=== PATIENT | female | born 1965 | race Caucasian/White ===

== ENCOUNTER 2023-01-30 10:50 | Emergency (ER) | payer BC, SELFPAY ==
[2023-01-30 10:59] VITALS: BP 167/101; PULSE 71; RESP 16; TEMP 36.7; O2SAT 99; BMI 24.4
[2023-01-30 11:27] LABS: Bilirubin Urine NEGATIVE (NEGATIVE); Blood Urine MODERATE (NEGATIVE); Clarity Urine CLEAR (CLEAR); Color Urine YELLOW (YELLOW); Glucose Urine UA NEGATIVE (NEGATIVE); Ketones Urine TRACE mg/dL (NEGATIVE); Leukocyte Esterase Urine LARGE (NEGATIVE); Nitrite Urine POSITIVE (NEGATIVE); Protein Urine 100 mg/dL (NEG/TRACE); Specific Gravity Urine 1.025 (1.005-1.025); pH Urine 5.5 (5.0-9.0)
[2023-01-30 12:26] LABS: WBC Urine 20-50 #/HPF (NONE SEEN)
[2023-01-30 12:27] LABS: Bacteria Urine TRACE #/HPF (NONE SEEN); Calcium Oxalate Crystals Urine RARE; Cast Seen? NONE SEEN #/LPF (NONE SEEN); Crystals Seen? Seen #/HPF (None Seen); Mucus Urine NONE SEEN (NONE SEEN); Squamous Epithelial Cell Urine FEW #/LPF (NONE/RARE); Urine Culture Indicated YES
--- NOTE | 2023-01-30 12:33 | ED_ITS ---
HPI - Female Genitourinary General Chief complaint: Urogenital-Female Stated complaint: UTI SYMPTOMS Time Seen by Provider: 01/30/23 10:55 Source: patient Mode of arrival: walk-in Limitations: no limitations History of Present Illness HPI Narrative: 57-year-old female presented to the emergency department for dysuria and frequency. She was diagnosed at an urgent care center about ten days ago. She was put on Bactrim but got a phone call that she had bacteria that was resistant to Bactrim. she was put on Macrobid by the urgent care center butt had adverse reaction to it so she stopped it. Her MATERIAL PROCESSOR phoned in a prescription for Pyridium but didn't change his antibiotic. She hasn't been on an antibiotic for several days. No fever or back pain or vomiting. Related Data Previous Rx's Medication Instructions Recorded ciprofloxacin HCl 250 mg tablet 250 mg PO BID #14 tabs 01/30/23 (Cipro) Allergies Allergy/AdvReac Type Severity Reaction Status Date / Time nitrofurantoin AdvReac Severe leg cramps Verified 01/30/23 11:05 [From Macrobid] Review of Systems ROS Narrative A ten point review of systems is negative except as noted above. Genitourinary Reports: painful urination and urinary frequency PFSH PFSH Social History Smoking status: Never smoker Exam Narrative Exam Narrative: Nurses note and vital signs reviewed and patient is not hypoxic. General: The patient appears well and in no apparent distress. Patient is resting comfortably on cart. Skin: Warm, dry, no pallor noted. There is no rash noted. Head: Normocephalic, atraumatic Eye: Normal conjunctiva, no drainage Ears, Nose, Mouth, and Throat: oral mucosa is moist. Nares patent. Cardiovascular: Regular Rate and Rhythm Respiratory: Patient is in no distress, no accessory muscle use, lungs are clear to auscultation, no wheezing, rales or rhonchi Back: non-tender, no CVA tenderness bilaterally to percussion. GI: soft and nontender Musculoskeletal: no joint swelling Neurological: A&O, normal speech Psychiatric: Cooperative Constitutional Vital Signs, click to edit/add: Last Vital Signs Temp 98.1 F 01/30/23 10:59 Pulse 71 01/30/23 10:59 Resp 16 01/30/23 10:59 BP 167/101 H 01/30/23 10:59 Pulse Ox 99 01/30/23 10:59 O2 Del Method Room Air 01/30/23 10:59 Course Vital Signs Vital signs: Vital Signs Temperature 98.1 F 01/30/23 10:59 Pulse Rate 71 01/30/23 10:59 Respiratory Rate 16 01/30/23 10:59 Blood Pressure 167/101 H 01/30/23 10:59 Pulse Oximetry 99 01/30/23 10:59 Oxygen Delivery Method Room Air 01/30/23 10:59 Temperature 98.1 F 01/30/23 10:59 Pulse Rate 71 01/30/23 10:59 Respiratory Rate 16 01/30/23 10:59 Blood Pressure 167/101 H 01/30/23 10:59 Pulse Oximetry 99 01/30/23 10:59 Oxygen Delivery Method Room Air 01/30/23 10:59 MDM - Female Genitourinary MDM Narrative Medical decision making narrative: urinalysis shows urinary tract infection. I obtained the culture results from the urgent care center and the organism was Escherichia coli sensitive to Cipro so should be prescribed Cipro. Treatment diagnosis and follow-up were discussed with the patient. Differential Diagnosis Differential diagnosis: Likely urinary tract infection and other (pyelonephritis) Lab Data Attestation: I reviewed the patient's lab results. Labs: Lab Results 01/30/23 Range/Units 11:01 Urine Color Yellow (YELLOW) Urine Clarity Clear (CLEAR) Urine pH 5.5 (5.0-9.0) Ur Specific [place] 1.025 (1.005-1.025) Urine Protein 100 A (NEG/TRACE) mg/dL Urine Glucose (UA) Negative (NEGATIVE) mg/dL Urine Ketones Trace A (NEGATIVE) mg/dL Urine Occult Blood Moderate A (NEGATIVE) Urine Nitrite Positive A (NEGATIVE) Urine Bilirubin Negative (NEGATIVE) Urine Urobilinogen 1.0 (0.2-1.0) EU/dL Ur Leukocyte Esterase Large A (NEGATIVE) Urine RBC 5-10 A (0-2) #/HPF Urine WBC 20-50 A (NONE SEEN) #/HPF Ur Squamous Epith Cells Few A (NONE/RARE) #/LPF Urine Crystals Seen A (None Seen) #/HPF Calcium Oxalate Crystal Rare Urine Bacteria Trace A (NONE SEEN) #/HPF Urine Casts None seen (NONE SEEN) #/LPF Urine Mucus None seen (NONE SEEN) Ur Culture Indicated? Yes Discharge Plan Discharge Chief Complaint: Urogenital-Female Clinical Impression: Urinary tract infection Patient Disposition: Home, Self-Care Time of Disposition Decision: 12:31 Condition: Good Mode of Transportation: Private Vehicle Prescriptions / Home Meds: New ciprofloxacin HCl [Cipro] 250 mg tablet 250 mg PO BID Qty: 14 0RF Instructions: Urinary Tract Infection in Women (ED) Stand Alone Forms: Portal Instructions Referrals: Physician,Non-Staff, MD [Primary Care Provider] - 1 week
== END 2023-01-30 12:39 | disposition home or self-care (01) ==
PROVIDERS: Emergency Provider Emergency Medicine
DX: N39.0 Urinary tract infection, site not specified (principal)
CPT/HCPCS: 81001; 87086; 87150; 87186; 99283

== ENCOUNTER 2023-01-31 15:33 | Emergency (ER) | payer BC, SELFPAY ==
[2023-01-31 15:38] VITALS: BP 128/92; PULSE 93; RESP 16; TEMP 37.4; O2SAT 99; BMI 24.7
--- NOTE | 2023-01-31 15:53 | ED_ITS ---
HPI - Abdominal Pain General Chief Complaint: Fever Stated Complaint: UTI, Possible allergic reaction, Nausea/Vomiting Time Seen by Provider: 01/31/23 15:41 Source: patient Mode of arrival: walk-in History of Present Illness HPI narrative: patient is a 57-year-old female who presents to the emergency department for reevaluation. She was seen in this emergency department yesterday for urinary tract infection, her urine specimen yesterday showed a urinary tract infection and she had been on multiple antibiotics from urgent care as the initial antibiotic she was prescribed several days ago was found to be resistant from the culture and the 2nd antibiotic she was switched to caused her to have muscle cramps which she believed was an ALLERGIC reaction. She was started on Cipro yesterday from this emergency department. She states last night she developed low-grade fevers and was generally not feeling well. She had some abdominal discomfort which is resolved at this time. She has had no dysuria or hematuria. She states she is not sure if the fevers and not feeling well were from the new antibiotic she was started on yesterday. She has had no swelling, hives or difficulty breathing. Related Data Previous Rx's Medication Instructions Recorded ciprofloxacin HCl 250 mg tablet 250 mg PO BID #14 tabs 01/30/23 (Cipro) ondansetron 4 mg disintegrating 4 mg PO Q6H PRN nausea and 01/31/23 tablet vomiting #12 tabs Allergies Allergy/AdvReac Type Severity Reaction Status Date / Time nitrofurantoin AdvReac Severe leg cramps Verified 01/30/23 11:05 [From Macrobid] Review of Systems ROS Constitutional Reports: fever and chills Ears, nose, mouth, and throat Denies: throat pain Cardiovascular Denies: chest pain Respiratory Denies: shortness of breath or cough Gastrointestinal Reports: abdominal pain, nausea and vomiting; Denies: diarrhea Genitourinary Denies: painful urination or urinary frequency Musculoskeletal Reports: back pain Integumentary/Breast Denies: rash Endocrine Denies: excessive urination PFSH PFSH Social History Smoking status: Never smoker Exam Narrative Exam Narrative: Gen.: Awake, alert, in no distress Head: Normocephalic, atraumatic ENT: Moist mucous membranes Respiratory: No respiratory distress, lungs clear bilaterally Cardio: Regular rate and rhythm Gastrointestinal: Abdomen is soft, nondistended and nontender to palpation; no CVA tenderness Extremities: Moves extremities equally Psych: Normal mood and affect Neuro: No focal neuro deficit Skin: Warm, dry, intact Constitutional Vital Signs, click to edit/add: Last Vital Signs Temp 99.4 F 01/31/23 15:38 Pulse 93 H 01/31/23 15:38 Resp 16 01/31/23 15:38 BP 128/92 H 01/31/23 15:38 Pulse Ox 99 01/31/23 15:38 O2 Del Method Room Air 01/31/23 16:01 Course Vital Signs Vital signs: Vital Signs Temperature 99.4 F 01/31/23 15:38 Pulse Rate 93 H 01/31/23 15:38 Respiratory Rate 16 01/31/23 15:38 Blood Pressure 128/92 H 01/31/23 15:38 Pulse Oximetry 99 01/31/23 15:38 Oxygen Delivery Method Room Air 01/31/23 15:38 Temperature 99.4 F 01/31/23 15:38 Pulse Rate 93 H 01/31/23 15:38 Respiratory Rate 16 01/31/23 15:38 Blood Pressure 128/92 H 01/31/23 15:38 Pulse Oximetry 99 01/31/23 15:38 Oxygen Delivery Method Room Air 01/31/23 16:01 MDM - Abdominal Pain MDM Narrative Medical decision making narrative: patient was treated with IV fluids, Zofran, Toradol. Vital signs are within normal limits, abdomen is soft and benign with no CVA tenderness in the Emergency Room. Patient with minimal leukocytosis with white blood cell count of 13.7. She has no bandemia, normal lactic acid. Her creatinine is normal. She was reexamined by attending physician prior to discharge, she was given education and reassurance that her symptoms are likely the result of the urinary tract infection that she was diagnosed with yesterday. She should continue her antibiotics and will be given Zofran as needed for nausea and vomiting. Continue Motrin and Tylenol, increase fluids and return to the Emergency Room if symptoms change or worsen. Medical Records Attestation: I reviewed the patient's medical records. Lab Data Attestation: I reviewed the patient's lab results. Labs: Lab Results 01/31/23 Range/Units 15:50 WBC 13.7 H (4.0-11.0) 10^3/uL RBC 4.21 (4.20-5.40) 10^6/uL Hgb 12.4 (12.0-16.0) g/dL Hct 36.5 (36.0-48.0) % MCV 86.7 (81.0-99.0) fL MCH 29.5 (26.7-34.0) pg MCHC 34.0 (29.9-35.2) g/dL RDW 12.3 (11.0-15.0) % Plt Count 238 (150-450) 10^3/uL MPV 9.3 L (9.5-13.5) fL Neut % (Auto) 80.9 H (43.0-75.0) % Lymph % (Auto) 9.3 L (20.5-60.0) % Gooding % (Auto) 9.0 (1.7-12.0) % Eos % (Auto) 0.1 L (0.9-7.0) % Baso % (Auto) 0.3 (0.2-2.0) % Neut # (Auto) 11.1 H (1.4-6.5) 10^3/uL Lymph # (Auto) 1.3 (1.2-3.8) 10^3/uL Gooding # (Auto) 1.2 H (0.3-0.8) 10^3/uL Eos # (Auto) 0.0 (0.0-0.7) 10^3/uL Baso # (Auto) 0.0 (0.0-0.1) 10^3/uL Abs Immat Gran (auto) 0.05 H (0.00-0.03) 10^3/uL Imm/Tot Granulo (auto) 0.4 (0.0-0.5) % Sodium 135 L (136-145) mmol/L Potassium 4.1 (3.5-5.1) mmol/L Chloride 101 (98-107) mmol/L Carbon Dioxide 24.4 (21.0-32.0) mmol/L Anion Gap 13.7 BUN 9.0 (7.0-18.0) mg/dL Creatinine 0.77 (0.55-1.02) mg/dL Est GFR ( Amer) >60 (>=60) Est GFR (Non-Af Amer) >60 (>=60) BUN/Creatinine Ratio 11.7 Glucose 120 H (74-106) mg/dL Lactate 0.6 (0.4-2.0) mmol/L Calcium 10.2 H (8.5-10.1) mg/dL Total Bilirubin 1.0 (0.2-1.0) mg/dL AST 20 (15-37) U/L ALT 33 (14-59) U/L Alkaline Phosphatase 150 H (46-116) U/L Total Protein 7.4 (6.4-8.2) g/dL Albumin 3.4 (3.4-5.0) g/dL Globulin 4.0 g/dL Albumin/Globulin Ratio 0.9 Discharge Plan Discharge Chief Complaint: Fever Clinical Impression: Urinary tract infection Patient Disposition: Home, Self-Care Time of Disposition Decision: 16:45 Condition: Good Prescriptions / Home Meds: New ondansetron 4 mg tablet,disintegrating 4 mg PO Q6H PRN (Reason: nausea and vomiting) Qty: 12 0RF No Action ciprofloxacin HCl [Cipro] 250 mg tablet 250 mg PO BID Qty: 14 0RF Instructions: Urinary Tract Infection in Women (ED) Stand Alone Forms: Portal Instructions Referrals: Physician,Non-Staff, MD [Primary Care Provider] - 1 week
[2023-01-31] MEDS: ONDANSETRON PF 4 MG/2 ML VIAL IV (16:08)
[2023-01-31] MEDS: KETOROLAC TROMETHAMINE 30 MG/ML VIAL IVP (16:08)
[2023-01-31] MEDS: 0.9 % SODIUM CHLORIDE 1,000 ML 1000 ML IV (16:08)
[2023-01-31 16:11] LABS: Basophils Percent Auto 0.3 % (0.2-2.0); Eosinophils Percent Auto 0.1 % (0.9-7.0); Hematocrit 36.5 % (36.0-48.0); Hemoglobin 12.4 g/dL (12.0-16.0); Immature Granulocytes Abs Auto 0.05 10^3/uL (0.00-0.03); Immature Granulocytes Pct Auto 0.4 % (0.0-0.5); Lymphocytes Absolute Auto 1.3 10^3/uL (1.2-3.8); Lymphocytes Percent Auto 9.3 % (20.5-60.0); Mean Corpuscular Hemoglobin 29.5 pg (26.7-34.0); Mean Corpuscular Volume 86.7 fL (81.0-99.0); Mean Platelet Volume 9.3 fL (9.5-13.5); Monocytes Absolute Auto 1.2 10^3/uL (0.3-0.8); Neutrophils Absolute Auto 11.1 10^3/uL (1.4-6.5); Neutrophils Percent Auto 80.9 % (43.0-75.0); Platelet Count 238 10^3/uL (150-450); Red Blood Count 4.21 10^6/uL (4.20-5.40); Red Cell Distribution Width 12.3 % (11.0-15.0); White Blood Count 13.7 10^3/uL (4.0-11.0)
[2023-01-31 16:30] LABS: Alanine Aminotransferase 33 U/L (14-59); Albumin Globulin Ratio 0.9; Albumin Level 3.4 g/dL (3.4-5.0); Alkaline Phosphatase 150 U/L (46-116); Anion Gap 13.7; Aspartate Amino Transferase 20 U/L (15-37); BUN Creatinine Ratio 11.7; Calcium 10.2 mg/dL (8.5-10.1); Carbon Dioxide 24.4 mmol/L (21.0-32.0); Chloride 101 mmol/L (98-107); Estimated GFR (African America >60 (>=60); Estimated GFR (Non-African Ame >60 (>=60); Glucose 120 mg/dL (74-106); Potassium 4.1 mmol/L (3.5-5.1); Sodium 135 mmol/L (136-145); Total Protein 7.4 g/dL (6.4-8.2)
[2023-01-31 16:32] LABS: Lactate/Lactic Acid 0.6 mmol/L (0.4-2.0)
== END 2023-01-31 17:24 | disposition home or self-care (01) ==
PROVIDERS: Physician Assistant; Emergency Provider Emergency Medicine
DX: N39.0 Urinary tract infection, site not specified (principal)
CPT/HCPCS: 36415; 80053; 83605; 85025; 96374; 96375; 99284

== ENCOUNTER 2025-03-20 07:57 | Emergency (ER) | payer BC, SELFPAY ==
[2025-03-20 08:01] VITALS: PULSE 74; TEMP 36.9; O2SAT 100; BMI 25.0
--- OUTSIDE RECORDS SUMMARY | 2025-03-20 08:05 | XMS_ITS | Clinical Summary ---
Author Organization [facility] Address [address] [place] [address] Care Team Providers Care Meat Smoker Name Role Phone Rudy Delgadillo DO Unavailable [phone] Channing Bhandari MD Primary Care Provider [phone] Allergies Active AllergyReactionsCriticalityNoted DateCommentsLoratadine-Pseudoephedrine FmYlhvbPinf25/06/2023 Burning with urination - dried out bladder NitrofurantoinGI qacppyztuucQuza94/06/2023 severe stomach pain/ diarrhea, pain in leg. Other Reaction(s): Numbness Medications MedicationSigDispense QuantityRefillsLast FilledStart DateEnd DateStatus calcium 200 MG tablet Active ascorbic acid (Vitamin C) 100 MG chewable tablet Active fluticasone (Flonase) 50 MCG/ACT nasal spray 3Active ammonium lactate (Lac-Hydrin) 12 % lotion Indications:Seborrheic keratosisApply to affected areas on body daily. 396 g [id number] phenazopyridine (Pyridium) 200 MG tablet Indications:Burning with urination,Pain with urinationTake 1 tablet every 8 hours as needed for 5 days for UTI symptoms 15 tablet 5Active B Complex Vitamins (VITAMIN-B COMPLEX PO) Take by mouth + CActive Active Problems ProblemNoted DateDiagnosed DateFemale climacteric state10/10/2022Fibrocystic breast qahhxlm6510/10/2022Neoplasm of uncertain behavior of skin06/08/2006 Resolved Problems ProblemNoted DateDiagnosed DateResolved DateFemale gyxcuhbml87 Status post yifuzmzzxmqt37Malignant melanoma of skin06/08/2006 3Primary malignant neoplasm of skin of trunk Encounters DateTypeDepartmentCare JrglOisfxtjqhxg48/11/2025 1:10 PM EDTOffice Visit [facility] [address] [place] [address] Veronique Michel PA Inflamed seborrheic poytfrrax12/11/2025amboo flowsheet [facility] [address] [place] [address] Veronique Michel PA 01/28/20253537Sxvuyk22/07/2025Travelfrom Last 3 Months Family History * Patient is adopted Medical HistoryRelationNameCommentsNo Known ProblemsFatherNo Known Problems MotherRelationNameStatusCommentsFatherMother Social History Tobacco UseTypesPacks/DayYears UsedDateSmoking Tobacco: NeverSmokeless Tobacco: Never Tobacco Cessation:Counseling Given: Not Answered Alcohol UseStandard Drinks/WeekCommentsNever0 (1 standard drink = 0.6 oz pure alcohol)caffeine intake: 1-2 cups per day; diet, mt.dew, coffee, sodaAUDIT-C AnswerDate RecordedQ1: How often do you have a drink containing alcohol?Monthly or less08/11/2024Q2: How many drinks containing alcohol do you have on a typical day when you are drinking?1 or Q3: How often do you have six or more drinks on one occasion?Never08/11/2024PHQ-2AnswerDate RecordedPatient Health Questionnaire-2 Tpemz532CommentsNoSex and Gender Information ValueDate RecordedSex Assigned at KrxqsJcpbcw38/14/2023 2:31 PM EDTLegal Sex Iqmdsr7608/01/2022 6:57 PM EDTGender OhbawphlQecdyk89/14/2023 2:31 PM EDTSexual DjdapndvkfeFpmlzzxe21/14/2023 2:31 PM EDT Last Filed Vital Signs Vital SignReadingTime TakenCommentsBlood Jvompomf272/8606 11:36 AM EDT Nrdbx111905/21/2024 1:38 PM ESTTemperature--Respiratory Rate--Oxygen Jnzwmetmqh03% 05/21/2024 1:38 PM ESTInhaled Oxygen Concentration--Byywam07.6 kg (182 lb) 11/13/2024 11:36 AM XROGcswzf351.3 cm (5' 9 )08/11/2024 3:24 PM EDTBody Mass Index26.8808/11/2024 3:24 PM EDT Plan of Treatment DateTypeDepartmentCare Team (Latest Contact Info)Apassnoinyl41/24/2025 9:50 AM ESTOffice Visit [facility] [address] [place] [address] Veronique Michel PA [address] [place] [address] Health MaintenanceDue DateLast DoneCommentsCT Bdsoolsggkzw1967Colonoscopy 1967Colorectal Cancer Xvmsgwtgy1967FIT-DNA1967FIT1967 FOBT1965 2547Vyrnibvcdgbti1967Pap Smear1988Influenza Vaccine (#1) 01/18/20253219Xgndvbkdj11/02/05399011/18/2024, 08/22/2022, 01/26/2020, Additional history existsCervical Cancer Pjpnrusly69/25/2030HPV/Uoaveh57, 01/26/2020 Procedures Procedure NamePriorityDate/TimeAssociated DiagnosisCommentsCRYOTHERAPY SKIN YBPXATDazypyu55/11/2025 1:17 PM EDT Inflamed seborrheic keratosis BI MAMMOGRAM SCREENING TOMOSYNTHESIS JEATKKYDSHwqkcjn06/02/2025 3:56 PM EDT Other screening mammogram IGP,RFXAPTIMA HPV ALL,16/18,60Atlruux04/25/2025 12:00 AM EDT Encounter for Papanicolaou smear of vagina from Last 3 Months or Most Recently Relevant to Health Maintenance Results * Cryotherapy, skin lesion (01/28/2025 1:17 PM EDT) Narrative Authorizing ProviderResult TypeResult StatusRye [facility] PROCEDURE ORDERABLESFinal Result * Bilateral screening mammogram with tomosynthesis (11/18/2024 3:56 PM EDT) Anatomical RegionLateralityModalityBreastBilateralMammographySpecimen (Source) Anatomical Location / LateralityCollection Method / VolumeCollection Time Received Time11/19/2024 10:25 AM EDT Impressions 11/19/2024 10:31 AM EDT Impression: No specific evidence of malignancy seen in either breast. BIRADS 2 - Benign Findings DENSITY: The breasts are heterogeneously dense, which may obscure small masses. FOLLOW-UP: Routine Screening Mammogram ELECTRONICALLY SIGNED BY: Rob Infante M.D. Narrative 11/19/2024 10:31 AM EDT Examination: BI MAMMOGRAM SCREENING TOMOSYNTHESIS BILATERAL Clinical History: screening Technique: Screening digital mammography study of both breasts was performed with 2-D and 3-D tomosynthesis imaging. Study was compared to the prior exam dated 08/22/2022. Findings: There is no evidence of interval dominant spiculated mass, grouped microcalcifications, or skin thickening which would be suggestive of malignancy. ?? Mild scattered benign calcifications are noted bilaterally. Axillary lymph nodes including partially visualized lymph nodes are noted bilaterally and appear grossly unremarkable. Procedure Note Rob Infante MD - 11/19/2024 Examination: BI MAMMOGRAM SCREENING TOMOSYNTHESIS BILATERAL Clinical History: screening Technique: Screening digital mammography study of both breasts wasperformed with 2-D and 3-D tomosynthesis imaging. Study was compared tothe prior exam dated 08/22/2022. Findings: There is no evidence of interval dominant spiculated mass,grouped microcalcifications, or skin thickening which would be suggestiveof malignancy. Mild scattered benign calcifications are noted bilaterally. Axillary lymphnodes including partially visualized lymph nodes are noted bilaterally andappear grossly unremarkable. IMPRESSION: Impression: No specific evidence of malignancy seen in either breast. BIRADS 2 - Benign Findings DENSITY: The breasts are heterogeneously dense, which may obscure smallmasses. FOLLOW-UP: Routine Screening Mammogram ELECTRONICALLY SIGNED BY: Rob Infante M.D. Authorizing ProviderResult TypeResult StatusWillleta Stephen [facility] BI PROCEDURES Final Result * IGP,rfxAptima HPV all,16/18,45 (08/11/2024 12:00 AM EDT)ComponentValueRef RangeTest MethodAnalysis TimePerformed AtPathologist SignatureDiagnosis: CommentLABCORPComment:NEGATIVE FOR INTRAEPITHELIAL LESION OR MALIGNANCY. Specimen Adequacy:CommentLABCORPComment:Satisfactory for evaluation.Clinician Provided ICD10:CommentLABCORPComment:Z12.72Performed By:CommentLABCORPComment: Kenyatta Vazquez, Shower Screen Installer ([facility])Cyto Comments.LABCORPNote:Comment [facility]ABC[facility]PComment: The Pap smear is a screening test designed to aid in the detection of premalignant and malignant conditions of the uterine cervix. ??It is not a diagnostic procedure and should not be used as the sole means of detecting cervical cancer. ??Both false-positive and false-negative reports do occur. Test Methodology:CommentLABCORPComment: This liquid based ThinPrep(R) pap test was screened with the use of an image guided system. .CommentLABCORPComment: The HPV DNA reflex criteria were not met with this specimen result therefore, no HPV testing was performed. Specimen (Source)Anatomical Location / LateralityCollection Method / Volume Collection TimeReceived TimeSwabVaginal structure / Bbtqpdo37/ Comment:Vagina Print requisit Narrative [facility] - 08/13/2024 10:07 AM EDT Performed at: 01 - [facility]Jesus garcia [place] ??[id number] Hospital Technician: Ana Hyde MD, Phone: ??[phone] Specimen Comment: [id number] Specimen Comment: No. of containers..01 ThinPrep Vial Authorizing ProviderResult TypeResult StatusWilliam D Zafar [facility] ORDERABLESFinal ResultPerforming OrganizationAddressCity/State/ZIP CodePhone Number [facility] from Last 3 Months or Most Recently Relevant to Health Maintenance Insurance * Guarantor: Amy Chandra AAccount TypeRelation to PatientDate of BirthPhone Billing AddressPersonal/AlsohbFixx1965 [address] [address] Care Teams Team MemberRelationshipSpecialtyStart DateEnd Date Channing Bhandari MD [address] [place] [address] PCP - GeneralInternal Medicine11/12/24 Rudy Delgadillo DO [address] [place] [address] Referring PhysicianNeurolog05/21/24
[2025-03-20 08:09] VITALS: BP 145/85
[2025-03-20 08:29] LABS: Glucose Urine UA NEGATIVE (NEGATIVE)
[2025-03-20 08:40] LABS: Cast Seen? NONE SEEN #/LPF (NONE SEEN); Crystals Seen? None Seen #/HPF (None Seen); Urine Culture Indicated YES-FRMC
--- NOTE | 2025-03-20 09:01 | ED_ITS ---
HPI - Female Genitourinary General Chief complaint: Urogenital-Female Stated complaint: UTI SYMPTOMS Time Seen by Provider: 03/20/25 08:09 Source: patient Mode of arrival: walk-in Limitations: no limitations History of Present Illness HPI Narrative: cc - uti symptoms Several days ago, the patient developed urinary symptoms including increased frequency, burning with urination and bladder discomfort. 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 Rather than get antibiotics she chose to try an [id number] product without any improvement. Now she presents with increased urinary symptoms, worsened pain. No recent history of instrumentation. Related Data Previous Rx's ?Medication ?Instructions ?Recorded ciprofloxacin HCl 250 mg tablet 250 mg PO BID #14 tabs 01/30/23 (Cipro) ondansetron 4 mg disintegrating 4 mg PO Q6H PRN nausea and 01/31/23 tablet vomiting #12 tabs ciprofloxacin HCl 500 mg tablet 500 mg PO BID #10 tabs 03/20/25 (Cipro) phenazopyridine 200 mg tablet 200 mg PO Q8H PRN dysuri a #7 tabs 03/20/25 (Pyridium) Allergies Allergy/AdvReac Type Severity Reaction Status Date / Time nitrofurantoin (From AdvReac Severe leg cramps Verified 01/30/23 11:05 Macrobid) PFSH PFSH Social History Smoking status: Never smoker Little interest or pleasure in doing things: not at all Feeling down, depressed, or hopeless: not at all Exam Narrative Exam Narrative: Nurses notes and vital signs reviewed and patient is not hypoxic. afebrile General: Well-appearing and in no apparent distress. Skin: Warm, dry, no pallor noted. Eye: Pupils are equal, round and EOMI. No scleral icterus. Ears, Nose, Mouth, and Throat: Oral mucosa is moist Cardiovascular: Regular Rate and Rhythm without murmur, gallop or rub. Respiratory: No accessory muscle use or respiratory distress. Lungs are clear to auscultation, no wheezing, rales or rhonchi Back: No CVA tenderness Musculoskeletal: normal ROM GI: Abdomen is soft, non-distended. Normal bowel sounds. No masses appreciated. Minimal suprapubic tenderness to palpation. No rebound, guarding, or rigidity noted. Neurological: A&O x4. No cranial nerve dysfunction observed. No truncal ataxia. Moves all extremities. Sensation intact. Psychiatric: Cooperative and interactive. Normal mood and affect. Constitutional Vital Signs, click to edit/add: Last Vital Signs Temp 98.4 F 03/20/25 08:01 Pulse 74 03/20/25 08:01 Resp 18 03/20/25 08:01 BP 145/85 H 03/20/25 08:09 Pulse Ox 100 03/20/25 08:01 O2 Del Method Room Air 03/20/25 08:01 Course Vital Signs Vital signs: Vital Signs Temperature 98.4 F 03/20/25 08:01 Pulse Rate 74 03/20/25 08:01 Respiratory Rate 18 03/20/25 08:01 Pulse Oximetry 100 03/20/25 08:01 Oxygen Delivery Method Room Air 03/20/25 08:01 Temperature 98.4 F 03/20/25 08:01 Pulse Rate 74 03/20/25 08:01 Respiratory Rate 18 03/20/25 08:01 Blood Pressure 145/85 H 03/20/25 08:09 Pulse Oximetry 100 03/20/25 08:01 Oxygen Delivery Method Room Air 03/20/25 08:01 MDM - Female Genitourinary MDM Narrative Medical decision making narrative: Urinalysis reveals acute urinary tract infection. The patient was informed of results. She was prescribed ciprofloxacin and Pyridium. She was instructed follow-up with her primary care physician as needed or return to the ED if she worsens. Lab Data Attestation: I reviewed the patient's lab results. Labs: Lab Results 03/20/25 Range/Units 08:13 Urine Color Lt. yellow (YELLOW) Urine Clarity Sl cloudy (CLEAR) Urine pH 6.0 (5.0-9.0) Ur Specific Horner <=1.005 A (1.005-1.025) Urine Protein 30 A (NEG/TRACE) mg/dL Urine Glucose (UA) Negative (NEGATIVE) mg/dL Urine Ketones Negative (NEGATIVE) mg/dL Urine Occult Blood Large A (NEGATIVE) Urine Nitrite Negative (NEGATIVE) Urine Bilirubin Negative (NEGATIVE) Urine Urobilinogen 0.2 (0.2-1.0) EU/dL Ur Leukocyte Esterase Large A (NEGATIVE) Urine RBC 50-75 A (0-2) #/HPF Urine WBC 75-100 A (NONE SEEN) #/HPF Ur Squamous Epith Cells Rare (NONE/RARE) #/LPF Urine Crystals None seen (None Seen) #/HPF Urine Bacteria Trace A (NONE SEEN) #/HPF Urine Casts None seen (NONE SEEN) #/LPF Urine Mucus None seen (NONE SEEN) Ur [place] [place] Discharge Chief Complaint: Urogenital-Female Clinical Impression: Urinary tract infection Patient Disposition: Home, Self-Care Time of Disposition Decision: 08:54 Prescriptions / Home Meds: New ciprofloxacin HCl [Cipro] 500 mg tablet 500 mg PO BID Qty: 10 0RF phenazopyridine [Pyridium] 200 mg tablet 200 mg PO Q8H PRN (Reason: dysuria) Qty: 7 0RF No Action ciprofloxacin HCl [Cipro] 250 mg tablet 250 mg PO BID Qty: 14 0RF ondansetron 4 mg tablet,disintegrating 4 mg PO Q6H PRN (Reason: nausea and vomiting) Qty: 12 0RF Print Language: [place] Instructions: Urinary Tract Infection in Women (ED) Referrals: Physician,Non-Staff, MD [Primary Care Provider] - 1 week
== END 2025-03-20 09:08 | disposition home or self-care (01) ==
PROVIDERS: Emergency Provider Emergency Medicine
DX: N39.0 Urinary tract infection, site not specified (principal)
CPT/HCPCS: 81001; 87086; 87088; 87186; 99283